=== PATIENT | female | born 1945 ===

== ENCOUNTER 2018-11-22 08:45 | Inpatient (IN) | payer MEDICARE, BC ==
--- NOTE | 2018-11-22 08:52 | ED ---
Adult Trauma - HPI Summary HPI Summary: A 73 y/o female brought in by [facility] presents to [facility] with a chief complaint of pain post falling down steps at home. She reports walking down some of her steps to go to the bathroom when she may have slipped and fell down the rest of the way down. She denies LOC, stating she remembers bumping down about 6-7 carpet steps. he used the stair railing to get up, and then noticed her pain in left hip and knee. Pt states pain in posterior hip increased when sat to use bathroom. Pt was able to get up and get through the kitchen using counter as support - made coffee. The patient called neighbor who came over and call EMS. Pt denies any CP, SOB, abdominal pain, N/V, DINH, vision changes, neck pain or bleeding. No paresthesia. Pt states has arthritis and typically uses APAP or Exederin. None today. Pt uses a cane at most time. No anticoagulants, Per EMS, she was given Fentanyl and Zofran en route, high BP noted by EMS. Her pain has been somewhat alleviated from medication. Pt's medications reviewed this visit. - History of Current Complaint Stated Complaint: FALL INJURY PER EMS Time Seen by Provider: 11/22/18 08:46 Hx Obtained From: Patient, EMS Mechanism of Injury: Fall - down steps Loss of Consciousness: no loss of consciousness Onset/Duration: Started Minutes Ago, Still Present Onset of Pain: Immediate, Post Accident, Prior to Arrival Onset Severity: Moderate Current Severity: Moderate Pain Intensity: 5 Pain Scale Used: 0-10 Numeric Location: Other - left hip, under left arm Aggravating Factor(s): Movement Alleviating Factor(s): Medications Associated Signs & Symptoms: Negative: SOB, Chest Pain, Fever, Loss of Consciousness - Allergy/Home Medications Allergies/Adverse Reactions: Allergies Allergy/AdvReac Type Severity Reaction Status Date / Time Penicillins Allergy Anaphylatic Verified 11/22/18 08:53 Shock strawberry Allergy Hives Verified 11/22/18 08:53 PMH/Surg Hx/FS Hx/Imm Hx Previously Healthy: Yes Endocrine/Hematology History: Denies: Hx Anticoagulant Therapy, Hx Diabetes, Hx Systemic Lupus Erythematosus Cardiovascular History: Reports: Hx Hypercholesterolemia, Hx Hypertension Denies: Hx Congestive Heart Failure GI History: Reports: Hx Gastroesophageal Reflux Disease, Hx Ulcer History: Denies: Hx Dialysis, Hx Renal Disease Musculoskeletal History: Denies: Hx Rheumatoid Arthritis - Cancer History Hx Chemotherapy: No - Surgical History Surgery Procedure, Year, and Place: hysterectomy, appendectomy - Family History Known Family History: Positive: Non-Contributory Negative: Cardiac Disease, Hypertension, Diabetes - Social History Occupation: Retired Lives: Alone Alcohol Use: None Hx Substance Use: No Substance Use Type: Reports: None Hx Tobacco Use: Yes Smoking Status (MU): Current Every Day Smoker Type: Cigarettes Amount Used/How Often: 8-10 per day Review of Systems Negative: Fever Eyes: Negative - vision changes ENT: Negative Cardiovascular: Negative Negative: Chest Pain Respiratory: Negative Negative: Shortness Of Breath Negative: Abdominal Pain, Vomiting, Nausea Positive: Arthralgia - left knee, Myalgia - left hip, armpit, Other - denies neck and bacl pain Neurological: Negative - LOC Negative: Headache, Paresthesia, Numbness, Syncope All Other Systems Reviewed And Are Negative: Yes Physical Exam - Summary Physical Exam Summary: Vital Signs Reviewed: Yes A+Ox3, no distress, texting son, appropriate pain with movement Eyes: Conjunctiva Clear, MEAGHAN. EOM intact and full ENT: Hearing grossly normal TM x 2 clear- no hemotymp, no septal hematoma, mmoist, uvula midline, no exudate, no erythema Neck: Positive: Supple no pain with palpaton Respiratory: Positive: No respiratory distress, No accessory muscle use + CTA throughout no w/r No chest wall pain Cardiovascular: RRR nl s1, s2 no m/r CBT <2 sec 2+ PT b/l abd soft + BS nt/nd no guarding, no distension No ecchymosis Musculoskeletal Exam: No pain c/t/l/s Full AROM cspine + Full AROM upper shoulder b/l without difficulty, mild left shoulder pain with ROnM flex/ext elbows wrist LLE: + flex/ext ankle, + pain lateral aspect left knee with flexion > 60 No tenderness aling femur, Pt with limited SLE second to pain in left hip, posterior Pt with pain with pain lateral rotation Neurological: Positive: Alert, + sensation throughout Psychological: Positive: Normal Response To Family Skin: Positive: no rash, no ecchymosis chest, abdomen, ext no open wound Triage Information Reviewed: Yes Vital Signs Reviewed: Yes Diagnostics - Laboratory Result Diagrams: 11/22/18 09:38 11/22/18 09:38 Lab Statement: Any lab studies that have been ordered have been reviewed, and results considered in the medical decision making process. - Radiology hip/pelvis x-ray Radiology Interpretation Completed By: Radiologist Summary of Radiographic Findings: 1. NONDISPLACED FRACTURE OF THE SUBCAPITAL FEMORAL NECK. 2. OSTEOPENIA. 3. OSTEOARTHRITIS. ED physician has reviewed this imaging report. CXR Radiology Interpretation Completed By: Radiologist Summary of Radiographic Findings: No active cardiopulmonary disease is noted. ED physician has reviewed this imaging report. femur x-ray Radiology Interpretation Completed By: Radiologist Summary of Radiographic Findings: OSTEOARTHRITIS. NO ACUTE OSSEOUS INJURY. IF SYMPTOMS PERSIST, RECOMMEND REPEAT IMAGING. ED physician has reviewed this imaging report. knee x-ray Radiology Interpretation Completed By: Radiologist Summary of Radiographic Findings: OSTEOPENIA. OSTEOARTHRITIS. NO ACUTE OSSEOUS INJURY. IF SYMPTOMS PERSIST, RECOMMEND REPEAT IMAGING. ED physician has reviewed this imaging report. - CT Brain CT Interpretation Completed By: Radiologist Summary of CT Findings: NO ACUTE INTRACRANIAL PATHOLOGY. ED physician has reviewed this imaging report. cerical spine CT Interpretation Completed By: Radiologist Summary of CT Findings: 1. STRAIGHTENING OF THE CERVICAL SPINE, NO EVIDENCE FOR FRACTURE.. 2. MODERATE CERVICAL SPONDYLOSIS DESCRIBED. 3. LARGE NODULE IN THE RIGHT THYROID LOBE. RECOMMEND AN OUTPATIENT THYROID ULTRASOUND FOR. FURTHER EVALUATION. ED physician has reviewed this imaging report. - EKG No standard instances Cardiac Rate: NL EKG Rhythm: Sinus Rhythm ST Segment: Normal Ectopy: : None EKG Comparison: Other - no previous to compare No STEMI Re-Evaluation - Re-Evaluation First Eval Re-Evaluation Time: 10:54 Change: Unchanged Comment: Infomed patient that she has a fracture, pain is tolerated, Ortho will be informed. Second Eval Re-Evaluation Time: 10:59 Change: Unchanged Comment: Informed Pt about plan for admission. Ortho in OR - awaiting call back. spoke with Dr. Baker - will admit once ortho agreement. Will place ward Third Eval Re-Evaluation Time: 11:22 Comment: Spoke with Dr. Mckeon - pt to remain NPO (black coffee this am). May go to OR today if pt is cleared by Medicine. April Dumont NP from hospitalist present and aware of converstation. Will admit medicine. Ortho PA to see pt in ED. Pt to remain NPO Adult Trauma Course/Dx - Course Course Of Treatment: Patient presents to ED by EMS. Patient 73-year-old female who is on medication for blood pressure and cholesterol. Patient states this morning she was going down stairs when she lost her footing and fell approximately 6-7 steps. Patient states she bounced on mostly on her left side. Patient did not hit her head. Did not lose consciousness. No blood HEENT. Patient does have a baseline history of arthritis. Patient states she was able to get herself up using the stairs. Patient states with walking and sitting she has increased pain in her left hip and left knee. Patient did not take anything for pain prior to calling EMS. Patient was given febrile Zofran with EMS with some improvement. Patient is not on anticoagulation. On exam vital signs show slightly elevated blood pressure. Patient with discomfort in his left Left knee with range of motion attempts. We will check labs, EKG, imaging. We'll give patient some morphine. Patient was given Zofran prior to arrival. We'll place ice on her knee and hip. Will also prescribe some Tylenol. Suspect patient may have a pubic rami fracture or possibly a hip fracture as well. We'll continue to monitor. Patient comfortable in agreement with plan. - Diagnoses Provider Diagnoses: Subcapital fracture of left hip, Fall - Physician Notifications Discussed Care Of Patient With: Pamela Baker Time Discussed With Above Provider: 10:57 - call back after d/w Ortho Instructed by Provider To: Admit As Inpatient Discharge - Sign-Out/Discharge Documenting (check all that apply): Patient Departure Patient Received Moderate/Deep Sedation with Procedure: No - Discharge Plan Condition: Stable Disposition: ADMITTED TO [facility] Referrals: Chichi Munoz MD [Medical Doctor] - - Billing Disposition and Condition Condition: STABLE Disposition: Admitted to [facility] - Attestation Statements Document Initiated by Scribe: Yes Documenting Scribe: Victoriano Aguilar Provider For Whom Jing is Documenting (Include Credential): Solange Valladares MD Scribe Attestation: Victoriano Aguillon, scribed for Solange Valladares MD on 11/22/18 at 1122. Scribe Documentation Reviewed: Yes Provider Attestation: The documentation as recorded by the Victoriano conner accurately reflects the service I personally performed and the decisions made by me, Solange Valladares MD Status of Scribe Document: Viewed
[2018-11-22] MEDS ORDERED: Acetaminophen TAB* 325 MG PO ONE (09:23)
[2018-11-22] MEDS ORDERED: Morphine 4 MG/ML VIAL (1 ml) 4 MG/ML VIAL IV ONE (09:23)
[2018-11-22 09:46] LABS: ABS Basophils 0.1 10^3/ul (0-0.2); ABS Eosinophils 0.1 10^3/ul (0-0.6); ABS Lymphocytes 2.1 10^3/ul (1.0-4.8); ABS Monocytes 0.3 10^3/ul (0-0.8); ABS Neutrophils 3.1 10^3/ul (1.5-7.7); ABS Nucleated RBC 0 10^3/ul; Eosinophil % 1.2 %; Hematocrit 42 % (33-41); Hemoglobin 14.1 g/dL (12.0-16.0); Lymphocyte % 37.8 %; Mean Corpuscular HGB Conc 34 g/dL (31-36); Mean Corpuscular Hemoglobin 30 pg (27-31); Mean Corpuscular Volume 89 fL (80-97); Mean Platelet Volume 7.2 fL (7.4-10.4); Nucleated Red Blood Cells % 0; Platelet Count 295 10^3/uL (150-450); Red Blood Count 4.64 10^6 /uL (3.70-4.87); Red Cell Distribution Width 14 % (10.5-15); White Blood Count 5.6 10^3/uL (3.5-10.8)
[2018-11-22 10:06] LABS: Albumin 4.4 g/dL (3.2-5.2); Albumin/Globulin Ratio 1.6 (1-3); BUN/Creatinine Ratio 19.6 (8-20); Calcium 9.9 mg/dL (8.6-10.3); EGFR African American 128.8 (>60); EGFR Non-African American 106.4 (>60); Globulin 2.7 g/dL (2-4); Magnesium 1.7 mg/dL (1.9-2.7); Potassium 3.7 mmol/L (3.5-5.0); Total Bilirubin 0.5 mg/dL (0.2-1.0); Total Protein 7.1 g/dL (6.4-8.9)
[2018-11-22 10:07] LABS: Troponin I 0.01 ng/mL (<0.04)
[2018-11-22 11:32] LABS: Urine Appearance Clear; Urine Bacteria Absent (Absent); Urine Bilirubin Negative (Negative); Urine Blood Negative (Negative); Urine Color Yellow; Urine Glucose Negative (Negative); Urine Ketones Trace (Negative); Urine Nitrite Negative (Negative); Urine Protein Negative (Negative); Urine Red Blood Cell Trace(0-2/hpf) (Absent); Urine Specific Gravity 1.009 (1.010-1.030); Urine Squamous Epithelial Cell Present (Absent); Urine Urobilinogen Negative (Negative); Urine White Blood Cell Trace(0-5/hpf) (Absent)
[2018-11-22] MEDS ORDERED: Magnesium Sulfate 2 GM IV* 2 GM/50 ML BAG IVPB ONE (11:44)
[2018-11-22] MEDS ORDERED: Ondansetron INJ* 2 MG/ML VIAL IV PRN (11:45)
[2018-11-22] MEDS ORDERED: Morphine 4 MG/ML VIAL (1 ml) 4 MG/ML VIAL IV PRN (12:04)
--- NOTE | 2018-11-22 12:07 | CONSULT ---
Consult Consult: Orthopedic consultation Attending Provider: Dr Mckeon Date of Consultation: 11/22/18 Date of Admission: 11/22/18 CC: left hip pain History: Patient is a 73 year old female who present to [facility] on 11/22/18 after sustaining a slip and fall on her stairs at home resulting in left hip fracture. Past medical history includes hypertension and hyperlipidemia as well as a remote history of bleeding gastric ulcer asymptomatic x 40 years. Fall occurred while walking down the stairs this morning, she fell down 6-7 stairs and reports no additional injuries aside from her left hip, and much less bothersome left knee pain. Left hip pain is sharp and severe without radiation. She has no numbness or tingling of the left lower extremity. She did not hit her head or lose consciousness. Denies any chest pain , shortness of breath, dizziness, lightheadedness or recent illness. Pain is currently localized to the left hip and knee. She was able to partial weight bear on the left leg after the fall and call her neighbor and ambulance. She has not eaten today, she had 1/2 cup black coffee at 7:30 am, has had nothing to eat or drink since. No known history of heart attack, stroke, DVT, PE. Has a remote history of blood transfusion 40 years ago after a hysterectomy. No history of adverse effects with anesthesia. Allergies: Penicillin - anaphylaxis. Strawberries Surgical History: Hysterectomy Past medical history: Hypertension, hyperlipidemia, bleeding gastric ulcer Family history: No family history of adverse effects with anesthesia Social: Smokes less than half a pack cigarettes per day. Does not drink alcohol or use ilicit drugs. Community ambulator with a cane. Lives alone and cares for herself without assistance. Home Meds: Simvastatin 40 mg qd, lisinopril 5 mg po QAM Review of Systems: General: Negative for Fever, Chills, recent illness HEENT: Negative for acute change in vision, headache, head trauma. Cardio: No irregular heartbeats, Chest Pain or history of MT Resp: No Shortness of Breath or Cough. No history of asthma, COPD or GURU Abd: no Abdominal Pain, Vomiting, Diarrhea, Nausea : no dysuria MSK: Left hip and knee pain, no other extremity pain Neuro: Sensation intact throughout all extremities without numbness or parasthesias Heme: no history of blood clot Skin: No rash or lesions. Physical Exam: Vitals: Temp Pulse Resp BP Pulse Ox 98.9 F 70 13 151/108 96 11/22/18 08:51 11/22/18 11:00 11/22/18 11:00 11/22/18 10:54 11/22/18 11:00 General: Well appearing, NAD, alert and oriented to person, place and time HEENT: NCAT. EOMi, moist mucus membranes Cardio: S1S2 RRR Resp: CTA BL. no wheezes, rales or rhonchi ABD: bowel sounds normoactive. Nontender to palpation, no guarding or rigidity. MSK Upper Extremities: Skin envelope intact, no obvious deformity, nontender to palpation. Active flexion and extension of digits, wrists, elbows without associated pain. Shoulders with nonpainful active forward flexion and abduction. MSK Right Lower Extremity: Skin envelope intact, no obvious russell deformity, nontender to palpation. Active nonpainful flexion and extension of digits, ankle , knee and hip. Negative log roll at the hip. No pain with heel strike. MSK Left Lower Extremity: Skin envelope intact, no obvious russell deformity, nontender to palpation of lower leg distally. She is very tender over the lateral hip as well as moderately over the anterior knee. Active nonpainful flexion and extension of digits, ankle. + pain of the hip with any ROM knee and hip. Spine: No midline tenderness of cervical, thoracic, lumber spine Neuro: Sensation intact to light touch throughout bilateral upper and lower extremities Vascular: DP pulse 2+ bilaterally. Capillary refill less than two seconds distally bilateral upper and lower extremities Psych: Appropriate affect. Skin: No rash or lesions. No open fractures. Diagnostic Studies: HIP LEFT 2 VIEWS AND PELVIS IMPRESSION: 1. NONDISPLACED FRACTURE OF THE SUBCAPITAL FEMORAL NECK. 2. OSTEOPENIA. 3. OSTEOARTHRITIS KNEE LEFT 4+ VWS IMPRESSION: 1. OSTEOPENIA. 2. OSTEOARTHRITIS. 3. NO ACUTE OSSEOUS INJURY. IF SYMPTOMS PERSIST, RECOMMEND REPEAT IMAGING. Assessment: Left hip femoral neck fracture Plan: Bedrest, NWB LLE. Patient agrees to surgical fixation of her left femoral neck fracture with cannulated screws today with Dr Mckeon . Patient should remain NPO. Needs a CBC, BMP, type and screen, INR prior to surgery. She has been medically optimized and will be admitted to our medicine service.
[2018-11-22] MEDS ORDERED: Buffered Lidocaine 1% SYRIN* 1 ML/SYRINGE INTRADERM ONE (12:48)
[2018-11-22] MEDS ORDERED: Lactated Ringers 1000 ML Bag* 1,000 ML IV SCH (13:00)
[2018-11-22 13:04] LABS: INR 0.92 (0.77-1.02)
[2018-11-22] MEDS: NS 0.9% 1000 ML** 1,000 ML IV SCH ×2 (13:45→19:50)
--- NOTE | 2018-11-22 14:34 | HP ---
CC: Dr. Lucero* HISTORY AND PHYSICAL: DATE OF ADMISSION: 11/22/18 PRIMARY CARE PROVIDER: Dr. Lucero with [place] [facility] [place]. OTHER PROVIDERS: Dr. Mckeon in consultation. ATTENDING PHYSICIAN: Dr. Humphrey* (dictated by Tony Moreau, LORENZO). CHIEF COMPLAINT: Left hip pain. HISTORY OF PRESENT ILLNESS: Duong is a 73-year-old female with a past medical history significant for hypertension and hyperlipidemia; who presented to the emergency department today with complaints of left hip pain. The patient reports that she woke this morning and walked down stairs to use the restroom and had a mechanical fall down the last 6 to 7 stairs. After which, she was able to stand backup and worked her way to the kitchen and bathroom. When she sat down in the toilet, she had severe pain in the left hip and called her friends who came to see her. Her friends called 911 and she presents to the emergency room. While in the emergency room, the patient was evaluated by Dr. Solange Valladares and she was found to have a nondisplaced fracture of the subcapital femoral neck. Therefore, Dr. Mckeon from Orthopedics was consulted. The plan is to take the patient to the OR today. Also in the emergency department, the patient had a CBC which was unremarkable, CMP which was unremarkable with the exception of magnesium of 1.7 and a urine which was unremarkable. The patient's vital signs have been stable. While in the emergency room, the patient has received IV fluids and pain medication. The patient will be admitted to a short-stay surgical. PAST MEDICAL HISTORY: 1. Hypertension. 2. Hyperlipidemia. PAST SURGICAL HISTORY: 1. Hysterectomy. 2. Kidney stent placement with lithotripsy. 3. Appendectomy. HOME MEDICATIONS: 1. [place]-3 fatty acid 1200 mg 1 cap p.o. b.i.d. 2. Lisinopril 5 mg p.o. daily. 3. Vitamin C 500 mg p.o. daily. 4. Simvastatin 40 mg p.o. q.p.m. 5. Multivitamin 1 tab p.o. daily. ALLERGIES: PENICILLIN and STRAWBERRY. FAMILY HISTORY: The patient reports her mother and father were healthy. Mother at age 99 and father at age 89 due to unknown causes. The patient reports her brother has prostate cancer. The patient denies any history of cardiovascular disease in her family. The patient denies any history of diabetes in her family. The patient does have a history of cancer in her family as her father had prostate cancer. SOCIAL HISTORY: The patient is currently everyday smoker. She reports she smokes about 8 to 10 cigarettes a day for about 50 years. She has never been a pack a day smoker. The patient denies alcohol use. The patient reports previous marijuana use which she stopped when she was diagnosed with hypertension. 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 The patient is . The patient has 3 stepchildren. The patient lives alone at 2- story house. The patient uses a walking stick for ambulation at baseline. REVIEW OF SYSTEMS: Constitutional: The patient denies fevers, anorexia, weight loss, recent illness, travel. Cardiac: The patient denies chest pain, edema, palpitations. Respiratory: The patient denies cough, denies hemoptysis , denies shortness of breath. GI: No nausea or vomiting, no diarrhea, no abdominal pain. Last BM was yesterday. : No gross hematuria or dysuria. Neuro: No focal weakness or sensory loss. Eyes: No visual complaints. ENT: No dysphagia. Musculoskeletal: The patient reports left knee and left hip pain. Skin: No rashes or lesions. Psych: No psychosis or anxiety. PHYSICAL EXAMINATION GENERAL: Mrs. Spann is a 73-year-old female who is sitting on the ED stretcher , appears in no acute distress. She appears stated age. VITAL SIGNS: Temp 98.9, HR 75, RR 22, O2 saturation 97% on room air, BP 158/83. HEENT: PERRLA. EOMs intact. Oral mucosa is moist without lesions. Posterior pharynx is clear. NECK: Full range of motion. No lymphadenopathy. Supple. RESPIRATORY: Symmetrical chest expansion. No accessory muscle use. Lungs are clear to auscultation. No rhonchi, wheezes, or rales. CARDIOVASCULAR: Regular rate and rhythm. S1 and S2 present. No murmurs, rubs , or gallops. ABDOMEN: Soft and nontender to palpation. Bowel sounds normoactive. EXTREMITIES: Skin is warm and smooth bilaterally. No edema. No clubbing or cyanosis. Pedal pulses are 2+ bilaterally. MUSCULOSKELETAL: No pain to palpation. NEURO: Awake, alert, and oriented x4. Motor strength is 5/5 in the upper and lower extremities. SKIN: The skin is grossly intact without lesions. DIAGNOSTIC STUDIES/LABORATORY DATA: WBC 5.6, hemoglobin 14.1, hematocrit 42, platelets 295. Sodium 137, potassium 3.7, chloride 104, BUN 11, creatinine 0.56 , glucose 119, magnesium 1.7. Urine positive for ketones, leukocyte esterase, squamous epithelials. Brain CT: Impression: No intracranial pathology. Cervical spine CT: Impression: Straightening of the cervical spine, no evidence of fracture. Moderate cervical spine spondylosis as described. Large nodule on the right thyroid lobe, recommend outpatient thyroid ultrasound for further evaluation. Chest x-ray: Impression: No active cardiopulmonary disease. EKG: Impression: Sinus rhythm. No previous to compare. No ST changes. Femur x-ray: Impression: Osteoarthritis. No acute osseous injury. If symptoms persist, recommend repeat imaging. Hip/pelvis x-ray: Impression: Nondisplaced fracture of the subcapital femoral neck. Osteopenia. Osteoarthritis. Knee x-ray: Impression: Osteopenia. Osteoarthritis. No acute osseous injury. ASSESSMENT AND PLAN: Mrs. Spann is a 73-year-old female with a past medical history significant for hypertension and hyperlipidemia, who presented to the ED today with complaints of left hip pain and was found to have a nondisplaced fracture of the subcapital femoral neck on the left side. The patient will be admitted to short-stay. 1. Nondisplaced fracture of the left subcapital femoral neck: As mentioned above, Orthopedics has been consulted and GUERA Singh has evaluated the patient. The plan is for the patient to go to the OR today. The patient reports she can climb a flight of stairs, participate in housework, and mow her lawn without getting shortness of breath or chest pain. The patient reports she has never had a reaction to anesthesia. The patient is maximized for surgery at this point. The patient only had black coffee this morning and sips of water with pills. 2. Pain management: The patient will be provided with IV pain management until she goes to the OR. After OR, she can be transitioned to p.o. pain management. 3. Physical therapy/occupational therapy: I have placed an order for physical therapy and occupational therapy to occur after a surgery. The patient lives in a 2-story house and will benefit from physical therapy. 4. Hypertension. The patient did take lisinopril 5 mg this morning. I will hold lisinopril in a postop period and resume as the patient tolerates. 5. Hyperlipidemia: I will continue the patient's statin therapy. 6. FEN: The patient is n.p.o. in preparation for surgery. After surgery, the patient can be advanced to a regular diet. 7. Code status: The patient wishes to be DNR/DNI. 8. Surrogate decision maker: The patient's surrogate decision maker will be her son, Jarrett Spann, who can be reached at [phone]. 9. DVT prophylaxis: Based on the DVT risk assessment, the patient is high risk. I will hold off on ordering subcu heparin at this time as the patient has plans for the OR this afternoon. DVT prophylaxis can resume after surgery per Ortho discretion. TIME SPENT: Approximately 65 minutes was spent on this admission, greater than half the time was spent with the patient, obtaining my history, performing my physical exam, and reviewing my plan of care. This case has been reviewed with my attending, Dr. Humphrey, who is in agreement with my plan of care. TONY MOREAU, LORENZO [id number]/CPS #: [id number] HEATHER
[2018-11-22] MEDS ORDERED: Ropivacaine* 2 MG/ML 20 ML VIAL (0.2%) ONE (14:54)
--- NOTE | 2018-11-22 15:06 | PN ---
Progress Note - Progress Note Date of Service: 11/22/18 Note: Pt seen and examined. Sustained a ground level fall this AM. Continued to weight bear but noted increase in pain. She came to the ER and was diagnosed with a nondisplaced femoral neck fracture. She is uses a cane to ambulate and [place] Her several years ago and she has step children but no family nearby. Denies SOB, CP, numbness and tingling. Temp Pulse Resp BP Pulse Ox 97.5 F 68 16 143/81 96 11/22/18 14:33 11/22/18 14:33 11/22/18 14:33 11/22/18 14:33 11/22/18 14:33 NAD. AAOX3. pleasant. lying in bed. EOM, CTA, RRR, abd soft and nontender. LLE: skin intact, SILT grossly distally, able to flex/ext toes and dorsiflex and plantarflex ankle. brisk cap refill. calf soft and nontender. Laboratory Results - last 24 hr 11/22/18 11/22/18 11/22/18 09:38 09:38 09:38 WBC 5.6 RBC 4.64 Hgb 14.1 Hct 42 H MCV 89 MCH 30 MCHC 34 RDW 14 Plt Count 295 MPV 7.2 L Neut % (Auto) 54.6 Lymph % (Auto) 37.8 Murray % (Auto) 5.2 Eos % (Auto) 1.2 Baso % (Auto) 1.2 Absolute Neuts (auto) 3.1 Absolute Lymphs (auto) 2.1 Absolute Monos (auto) 0.3 Absolute Eos (auto) 0.1 Absolute Basos (auto) 0.1 Absolute Nucleated RBC 0 Nucleated RBC % 0 INR (Anticoag Therapy) Sodium 137 Potassium 3.7 Chloride 104 Carbon Dioxide 27 Anion Gap 6 BUN 11 Creatinine 0.56 Est GFR ( Amer) 128.8 Est GFR (Non-Af Amer) 106.4 BUN/Creatinine Ratio 19.6 Glucose 119 H Calcium 9.9 Magnesium 1.7 L Total Bilirubin 0.50 AST 13 ALT 11 Alkaline Phosphatase 112 H Troponin I 0.01 Total Protein 7.1 Albumin 4.4 Globulin 2.7 Albumin/Globulin Ratio 1.6 Urine Color Urine Appearance Urine pH Ur Specific [place] Urine Protein Urine Ketones Urine Blood Urine Nitrate Urine Bilirubin Urine Urobilinogen Ur Leukocyte Esterase Urine WBC (Auto) Urine RBC (Auto) Ur Squamous Epith Cells Urine Bacteria Urine Glucose Blood Type A Positive Antibody Screen Negative 11/22/18 11/22/18 09:38 11:18 WBC RBC Hgb Hct MCV MCH MCHC RDW Plt Count MPV Neut % (Auto) Lymph % (Auto) Murray % (Auto) Eos % (Auto) Baso % (Auto) Absolute Neuts (auto) Absolute Lymphs (auto) Absolute Monos (auto) Absolute Eos (auto) Absolute Basos (auto) Absolute Nucleated RBC Nucleated RBC % INR (Anticoag Therapy) 0.92 Sodium Potassium Chloride Carbon Dioxide Anion Gap BUN Creatinine Est GFR ( Amer) Est GFR (Non-Af Amer) BUN/Creatinine Ratio Glucose Calcium Magnesium Total Bilirubin AST ALT Alkaline Phosphatase Troponin I Total Protein Albumin Globulin Albumin/Globulin Ratio Urine Color Yellow Urine Appearance Clear Urine pH 6.0 Ur Specific [place] 1.009 L Urine Protein Negative Urine Ketones Trace A Urine Blood Negative Urine Nitrate Negative Urine Bilirubin Negative Urine Urobilinogen Negative Ur Leukocyte Esterase Trace A Urine WBC (Auto) Trace(0-5/hpf) Urine RBC (Auto) Trace(0-2/hpf) Ur Squamous Epith Cells Present A Urine Bacteria Absent Urine Glucose Negative Blood Type Antibody Screen Xrays demonstrate a nondisplaced left femoral neck fracture. A/P 73 yo F with hyperlipidemia and hypertension with nondisplaced femoral neck fracture bedrest. npo for OR today plan for L hip cannulated screws ancef bonus clerk to OR.
[2018-11-22] MEDS ORDERED: Midazolam* 1 MG/ML 5 ML VIAL (5 MG) ONE (15:12)
[2018-11-22] MEDS ORDERED: DiMENhydriNATE IV* 50 MG/ML VIAL IV PUSH PRN (15:14)
[2018-11-22] MEDS ORDERED: ceFAZolin 2 GM in NS PREMIX(*) 2 GM/100 ML BAG IVPB ONE (15:14)
[2018-11-22] MEDS ORDERED: Naloxone* 0.4 MG/ML 1 ML VIAL IV PRN (15:14)
[2018-11-22] MEDS ORDERED: Acetaminophen IV 1GM/100ML * 1,000 MG/100 ML VIAL IVPB ONE (15:14)
[2018-11-22] MEDS ORDERED: oxyCODONE TAB* 5 MG TAB PO PRN (15:14)
[2018-11-22] MEDS ORDERED: fentaNYL* 50 MCG/ML 2 ML VIAL (100 MCG VIAL) ONE (15:25)
[2018-11-22] MEDS ORDERED: Ketorolac INJ* 30 MG/ML 1 ML VIAL ONE (16:11)
[2018-11-22] MEDS ORDERED: Ondansetron INJ* 2 MG/ML VIAL ONE (16:11)
[2018-11-22] MEDS ORDERED: Dexamethasone IV* 4 MG/ML 1 ML (4 MG) ONE (16:11)
[2018-11-22] MEDS ORDERED: DiMENhydriNATE IV* 50 MG/ML VIAL ONE (16:11)
[2018-11-22] MEDS ORDERED: Succinylcholine* 20 MG/ML 10 ML VIAL ONE (16:11)
[2018-11-22] MEDS ORDERED: Propofol* 10 MG/ML 20 ML BTL ONE ×2 (16:11→16:19)
[2018-11-22] MEDS ORDERED: Lidocaine 2% PF * 5 ML VIAL ONE (16:12)
[2018-11-22] MEDS ORDERED: oxyCODONE/Acetamin 5/325 MG* TAB PO PRN (17:00)
[2018-11-22] MEDS ORDERED: Docusate CAP* 100 MG PO PRN (17:00)
[2018-11-22] MEDS ORDERED: Morphine INJ* 2 MG/ML 1 ML SYRINGE (TWO MG - NEW SYRINGE VERSION) IV PRN (17:00)
[2018-11-22] MEDS ORDERED: HYDROmorphone INJ1* 1 MG/ML SYRINGE ONE ×2 (17:38→18:02)
[2018-11-22] MEDS ORDERED: Acetaminophen IV 1GM/100ML * 100 ML ONE (17:41)
[2018-11-22] MEDS: Atorvastatin* 20 MG TAB PO SCH (17:51)
[2018-11-22] MEDS ORDERED: Gabapentin CAP(*) 300 MG ONE (17:58)
[2018-11-22] MEDS ORDERED: oxyCODONE TAB* 5 MG TAB ONE (18:02)
[2018-11-22] MEDS: HYDROmorphone INJ1* 1 MG/ML SYRINGE IV PRN ×5 (18:05→18:48)
[2018-11-22] MEDS ORDERED: Gabapentin CAP(*) 300 MG PO ONE (18:30)
[2018-11-23] MEDS: Clindamycin 600 MG/D5W BAG(*) 600 MG/50 ML BAG IV SCH ×2 (00:17→08:36)
[2018-11-23] MEDS: oxyCODONE/Acetamin 5/325 MG* TAB PO PRN ×4 (04:27→18:59)
[2018-11-23 05:17] LABS: ABS Basophils 0 10^3/ul (0-0.2); ABS Eosinophils 0 10^3/ul (0-0.6); ABS Lymphocytes 1.8 10^3/ul (1.0-4.8); ABS Monocytes 0.7 10^3/ul (0-0.8); ABS Neutrophils 8.7 10^3/ul (1.5-7.7); ABS Nucleated RBC 0 10^3/ul; Eosinophil % 0 %; Hematocrit 35 % (33-41); Hemoglobin 11.8 g/dL (12.0-16.0); Mean Corpuscular HGB Conc 34 g/dL (31-36); Mean Corpuscular Hemoglobin 31 pg (27-31); Mean Corpuscular Volume 90 fL (80-97); Mean Platelet Volume 7.6 fL (7.4-10.4); Nucleated Red Blood Cells % 0; Platelet Count 250 10^3/uL (150-450); Red Blood Count 3.86 10^6 /uL (3.70-4.87); Red Cell Distribution Width 14 % (10.5-15); White Blood Count 11.3 10^3/uL (3.5-10.8)
[2018-11-23 05:35] LABS: BUN/Creatinine Ratio 26.2 (8-20); Calcium 8.8 mg/dL (8.6-10.3); EGFR African American 116.7 (>60); EGFR Non-African American 96.4 (>60); Potassium 4.1 mmol/L (3.5-5.0)
[2018-11-23] MEDS: Lisinopril TAB* 10 MG PO SCH (08:35)
--- NOTE | 2018-11-23 08:47 | PN ---
Progress Note - Progress Note Date of Service: 11/23/18 Note: pt seen and examined at 6:15 AM. Doing ok. Minimal pain but complains of severe stiffness. Denies numbness and tingling. No SOB Temp Pulse Resp BP Pulse Ox 98.9 F 74 16 124/60 97 11/23/18 07:47 11/23/18 07:47 11/23/18 08:35 11/23/18 07:47 11/23/18 07:[address] LLE: calf soft nontender, silt grossly distally. brisk cap refill, able to flex/ext toe, dorsiflex/plantarflex ankle Laboratory Results - last 24 hr 11/22/18 11/22/18 11/22/18 09:38 09:38 09:38 WBC 5.6 RBC 4.64 Hgb 14.1 Hct 42 H MCV 89 MCH 30 MCHC 34 RDW 14 Plt Count 295 MPV 7.2 L Neut % (Auto) 54.6 Lymph % (Auto) 37.8 Pepin % (Auto) 5.2 Eos % (Auto) 1.2 Baso % (Auto) 1.2 Absolute Neuts (auto) 3.1 Absolute Lymphs (auto) 2.1 Absolute Monos (auto) 0.3 Absolute Eos (auto) 0.1 Absolute Basos (auto) 0.1 Absolute Nucleated RBC 0 Nucleated RBC % 0 INR (Anticoag Therapy) Sodium 137 Potassium 3.7 Chloride 104 Carbon Dioxide 27 Anion Gap 6 BUN 11 Creatinine 0.56 Est GFR ( Amer) 128.8 Est GFR (Non-Af Amer) 106.4 BUN/Creatinine Ratio 19.6 Glucose 119 H Calcium 9.9 Magnesium 1.7 L Total Bilirubin 0.50 AST 13 ALT 11 Alkaline Phosphatase 112 H Troponin I 0.01 Total Protein 7.1 Albumin 4.4 Globulin 2.7 Albumin/Globulin Ratio 1.6 Urine Color Urine Appearance Urine pH Ur Specific [place] Urine Protein Urine Ketones Urine Blood Urine Nitrate Urine Bilirubin Urine Urobilinogen Ur Leukocyte Esterase Urine WBC (Auto) Urine RBC (Auto) Ur Squamous Epith Cells Urine Bacteria Urine Glucose Blood Type A Positive Antibody Screen Negative 11/22/18 11/22/18 11/23/18 09:38 11:18 04:52 WBC 11.3 H RBC 3.86 Hgb 11.8 L Hct 35 MCV 90 MCH 31 MCHC 34 RDW 14 Plt Count 250 MPV 7.6 Neut % (Auto) 77.2 Lymph % (Auto) 16.0 Pepin % (Auto) 6.5 Eos % (Auto) 0 Baso % (Auto) 0.3 Absolute Neuts (auto) 8.7 H Absolute Lymphs (auto) 1.8 Absolute Monos (auto) 0.7 Absolute Eos (auto) 0 Absolute Basos (auto) 0 Absolute Nucleated RBC 0 Nucleated RBC % 0 INR (Anticoag Therapy) 0.92 Sodium Potassium Chloride Carbon Dioxide Anion Gap BUN Creatinine Est GFR ( Amer) Est GFR (Non-Af Amer) BUN/Creatinine Ratio Glucose Calcium Magnesium Total Bilirubin AST ALT Alkaline Phosphatase Troponin I Total Protein Albumin Globulin Albumin/Globulin Ratio Urine Color Yellow Urine Appearance Clear Urine pH 6.0 Ur Specific [place] 1.009 L Urine Protein Negative Urine Ketones Trace A Urine Blood Negative Urine Nitrate Negative Urine Bilirubin Negative Urine Urobilinogen Negative Ur Leukocyte Esterase Trace A Urine WBC (Auto) Trace(0-5/hpf) Urine RBC (Auto) Trace(0-2/hpf) Ur Squamous Epith Cells Present A Urine Bacteria Absent Urine Glucose Negative Blood Type Antibody Screen 11/23/18 04:52 WBC RBC Hgb Hct MCV MCH MCHC RDW Plt Count MPV Neut % (Auto) Lymph % (Auto) Pepin % (Auto) Eos % (Auto) Baso % (Auto) Absolute Neuts (auto) Absolute Lymphs (auto) Absolute Monos (auto) Absolute Eos (auto) Absolute Basos (auto) Absolute Nucleated RBC Nucleated RBC % INR (Anticoag Therapy) Sodium 137 Potassium 4.1 Chloride 106 Carbon Dioxide 26 Anion Gap 5 BUN 16 Creatinine 0.61 Est GFR ( Amer) 116.7 Est GFR (Non-Af Amer) 96.4 BUN/Creatinine Ratio 26.2 H Glucose 123 H Calcium 8.8 Magnesium Total Bilirubin AST ALT Alkaline Phosphatase Troponin I Total Protein Albumin Globulin Albumin/Globulin Ratio Urine Color Urine Appearance Urine pH Ur Specific [place] Urine Protein Urine Ketones Urine Blood Urine Nitrate Urine Bilirubin Urine Urobilinogen Ur Leukocyte Esterase Urine WBC (Auto) Urine RBC (Auto) Ur Squamous Epith Cells Urine Bacteria Urine Glucose Blood Type Antibody Screen A/P POD#1 from L hip cannulated screws in setting of nondisplaced femoral neck fracture with severe OA PT/OT- WBAT mobilize analgesia lovenox for 6 weeks post op post op abx dressing change tomorrow dispo to home v snf
--- NOTE | 2018-11-23 11:30 | OP ---
CC: PCP OPERATIVE REPORT: DATE OF OPERATION: 11/22/18 DATE OF : 47 SURGEON: Chris Mckeon MD. PRESS ROOM SUPERVISOR: GUERA Us. ANESTHESIOLOGIST: Dr. Hartman. ANESTHESIA: General. PRE-OP DIAGNOSIS: Left nondisplaced femoral neck fracture. POST-OP DIAGNOSIS: Left nondisplaced femoral neck fracture. OPERATIVE PROCEDURE: Left hip cannulated screws. COMPLICATIONS: None. ESTIMATED BLOOD LOSS: 150. IMPLANTS: Three 7.3 mm cannulated screws. INDICATIONS: Duong Spann is a 73-year-old female who [place], who presents after a fall down the stairs. She was actually able to weight bear on the hip after and made herself a cup of coffee and went to the bathroom, but she had persistent pain. She went to the hospital and was diagnosed with nondisplaced fracture. She had significant osteoarthritis in both hips and is aware that she is a candidate for hip replacement, but declines to pursue with one. She has significant hip contractures with her hips and is unable to lie flat. She denies numbness or tingling. No other injuries. She is relatively healthy with minimal medical issues. She underwent medical risk optimization and was n.p.o. and was able to go to surgery the same day being seen. Risks and benefits were discussed at length, included but not limited to bleeding; infection; damage to nerves, vessels, surrounding structures; wound nonhealing; persistent pain; need for further surgery; scarring; stiffness; incomplete relief of symptoms; risks of anesthesia; failure of the hardware; nonunion; malunion; risk of DVT. She has elected to proceed. DESCRIPTION OF PROCEDURE: The patient was greeted in the preoperative area by the attending surgeon. Correct extremity was marked and consent was confirmed. The patient was then brought back to the operating suite. She was placed in the supine position on the operating table. She underwent general anesthesia. She was appropriately positioned on the fracture table after which all bony prominences were padded. She was placed in the traction table with a well- padded perineal post. The left buttock was placed in the traction leg lara with no traction as she did not have a displaced fracture, but she did have significant hip contracture and care was made to keep it so that it was appropriately flexed. The right hip was placed in well-leg lara, which was well padded. Once she was positioned, the x-ray was brought in to confirm visualization that there was no change in the alignment of the fracture. Once this was done, the left hip was then prepped and draped in usual sterile fashion with chlorhexidine soap, scrub, alcohol wipe and a final prep with ChloraPrep. After appropriate surgical pause indicating side, site, procedure, and administration of antibiotics, a 10 blade was used to make in line laterally about the hip bone along the IT band. The IT band was identified and incised in line. The soft tissues were carefully exposed and the Graves was used to expose the bone. Once this was identified through fluoroscopic guidance, the more superior guidewire was then provisionally placed. This was checked in AP and lateral views. Once it was appropriately positioned, two further pins were placed superiorly and anteriorly and superiorly and posteriorly. Once this was confirmed on the AP and lateral views, the appropriate length was identified, the lateral cortex was drilled and 3 appropriate length screws were placed, these were short-threaded cannulated screws. Once they were placed, final images were obtained. The wounds were copiously irrigated with sterile saline. The wound was closed in layers with IT band, first with 0-Vicryl as well as deep sutures to close down the space and then the skin was closed in layers with 3-0 Monocryl and cecilia. Sterile dressings were applied. She was awoken from anesthesia and transferred to PACU in stable condition. POSTOPERATIVE PLAN: She will be weightbearing as tolerated. She will undergo 24 hours postoperative antibiotics to start therapy today and tomorrow. DVT prophylaxis will be Lovenox for 6 weeks. She will be [facility]. I will see the patient back in the hospital, dressing change will be on postop day #2. [id number]/[facility] #: [id number] HEATHER
[2018-11-23] MEDS: Enoxaparin(*) 40 MG/0.4 ML SYR SUBCUT SCH (12:17)
[2018-11-23] MEDS ORDERED: Nicotine Inhaler* 10 MG AMP ONE (14:56)
[2018-11-23] MEDS ORDERED: Mouth Piece, Nicotine* 1 EACH CARTRIDGE ONE (14:57)
[2018-11-23] MEDS ORDERED: Clindamycin 600 MG IVPREMIX(* 600 MG/50 ML SDV IV SCH (16:00)
[2018-11-23] MEDS ORDERED: Nicotine Inhaler* 10 MG AMP INH PRN (17:45)
[2018-11-23] MEDS ORDERED: Mouth Piece, Nicotine* 1 EACH CARTRIDGE INH PRN (17:47)
--- NOTE | 2018-11-23 17:52 | PN ---
Subjective Date of Service: 11/23/18 Interval History: Patient reports frustration with not being permitted to walk as freely as she would like. She reports she has been refusing morphine at times when offered, and is now starting to feel more pain in her hip. Additionally reporting neck pain. She denies headache, chest pain, tachycardia, dyspnea, abd pain, n/v/d. Objective Active Medications: Atorvastatin Calcium (Lipitor*) 20 mg PO QPM [facility] Last Admin: 11/22/18 17:51 Dose: Not Given Docusate Sodium (Colace Cap*) 100 mg PO BID PRN PRN Reason: CONSTIPATION Enoxaparin Sodium (Lovenox(*)) 40 mg SUBCUT DAILY [facility] Stop: 01/03/19 09:01 Last Admin: 11/23/18 12:17 Dose: 40 mg Sodium Chloride (Ns 0.9% 1000 Ml) 1,000 mls @ 100 mls/hr IV PER RATE [facility] Last Admin: 11/22/18 19:50 Dose: 100 mls/hr Lisinopril (Prinivil Tab*) 10 mg PO DAILY [facility] Last Admin: 11/23/18 08:35 Dose: Not Given Morphine Sulfate (Morphine Inj (Syringe))*) 2 mg IV Q4H PRN PRN Reason: PAIN - BREAKTHROUGH Nicotine (Nicotine Inhaler*) 10 mg INH Q2H PRN PRN Reason: CRAVING Ondansetron HCl (Zofran Inj*) 4 mg IV Q4H PRN PRN Reason: NAUSEA/VOMITING Oxycodone/Acetaminophen (Percocet 5/325 Tab*) 1 tab PO Q4H PRN PRN Reason: PAIN - MODERATE Oxycodone/Acetaminophen (Percocet 5/325 Tab*) 2 tab PO Q4H PRN PRN Reason: PAIN - SEVERE Last Admin: 11/23/18 14:58 Dose: 2 tab Vital Signs - 8 hr 11/23/18 11/23/18 11/23/18 10:35 11:40 14:58 Temperature 98.9 F Pulse Rate 65 Respiratory 16 16 16 Rate Blood Pressure 110/60 (mmHg) O2 Sat by Pulse 96 Oximetry 11/23/18 11/23/18 15:33 16:58 Temperature 98.7 F Pulse Rate 75 Respiratory 16 16 Rate Blood Pressure 99/55 (mmHg) O2 Sat by Pulse 96 Oximetry Oxygen Devices in Use Now: Nasal Cannula Appearance: White female, appears stated age, laying upright in hospital bed, appearing in NAD Eyes: No Scleral Icterus, PERRLA Ears/Nose/Mouth/Throat: Mucous Membranes Moist Neck: NL Appearance and Movements; NL JVP, Trachea Midline Respiratory: Symmetrical Chest Expansion and Respiratory Effort, Clear to Auscultation Cardiovascular: NL Sounds; No Murmurs; No JVD, RRR Abdominal: - - Abdomen soft, nontender, nondistended Extremities: No Edema, No Clubbing, Cyanosis, - - Neg calf tenderness Skin: No Rash or Ulcers, - - Skin warm, dry, intact Neurological: Alert and Oriented x 3, NL Sensation Result Diagrams: 11/23/18 04:52 11/23/18 04:52 Microbiology and Other Data: Microbiology 11/22/18 11:18 Urine Culture - Final Urine No Growth (<1,000 CFU/mL) Assess/Plan/Problems-Billing Assessment: 73 yo female with PMHx HTN, HLD, and tobacco use presented to the ED after falling down nearly a full flight of stairs, found to have left hip fracture. Patient is s/p left hip fracture repair with Dr. Mckeon. - Patient Problems (1) Closed left hip fracture Code(s): S72.002A - FRACTURE OF UNSP PART OF NECK OF LEFT FEMUR, INIT SNOMED Code(s): 344457243 Comment: -s/p left hip fracture repair with Dr. Mckeon on 11/22/18 -left hip pain at time of evaluation, but patient is not maximizing pain control medications; to continue prn percocet and prn morphine -awaiting possible placement for rehab (2) Fall Comment: -left hip fracture as described above -otherwise without fracture of left knee, left femur, ribs, or cervical spine (3) Neck pain Code(s): M54.2 - CERVICALGIA SNOMED Code(s): 92806245 Comment: -patient complains of neck pain at time of evaluation -no evidence of fracture at admission; ROM intact at time of evaluation -patient not maximizing her pain control, will continue to monitor (4) Hypertension Code(s): I10 - ESSENTIAL (PRIMARY) HYPERTENSION SNOMED Code(s): 84816671 Comment: -home lisinopril restarted with holding parameters if SBP <130 -continue to monitor (5) Thyroid nodule Code(s): E04.1 - NONTOXIC SINGLE THYROID NODULE SNOMED Code(s): 711284849 Comment: -incidental thyroid nodule found on imaging - outpatient ultrasound to be recommended at discharge (6) Tobacco use Code(s): Z72.0 - TOBACCO USE SNOMED Code(s): 893883297 Comment: -started nicotine inhaler, discussed smoking cessation (7) Hyperlipidemia Code(s): E78.5 - HYPERLIPIDEMIA, UNSPECIFIED SNOMED Code(s): 47999508 Comment: -continue home lipitor (8) DVT prophylaxis Code(s): SUL2652 - SNOMED Code(s): 907825348 Comment: -continue lovenox unless otherwise determined by orthopedic surgery (9) DNR (do not resuscitate)
[2018-11-23] MEDS: Atorvastatin* 20 MG TAB PO SCH (18:37)
[2018-11-23 19:52] LABS: Mean Platelet Volume 7.4 fL (7.4-10.4); Platelet Count 226 10^3/uL (150-450)
[2018-11-24 06:42] LABS: Hematocrit 32 % (33-41)
[2018-11-24 06:58] LABS: Calcium 9.1 mg/dL (8.6-10.3); EGFR African American 140.3 (>60); EGFR Non-African American 115.9 (>60); Potassium 3.8 mmol/L (3.5-5.0)
[2018-11-24 07:53] VITALS: BP 133/67
[2018-11-24] MEDS ORDERED: Bisacodyl SUPP* 10 MG SUPP PR PRN (08:03)
[2018-11-24] MEDS: Enoxaparin(*) 40 MG/0.4 ML SYR SUBCUT SCH (08:26)
[2018-11-24] MEDS: Lisinopril TAB* 10 MG PO SCH (08:26)
--- NOTE | 2018-11-24 10:19 | PN ---
Progress Note - Progress Note Date of Service: 11/24/18 SOAP: Subjective: []Patient seen OOB in chair, she is doing well. Looking forward to discharge to [facility] today. Denies SOB, CP, palpitations or dizziness. Objective: [] Vital Signs Temp 97.8 F 11/24/18 07:36 Pulse 67 11/24/18 07:36 Resp 16 11/24/18 08:38 BP 133/67 11/24/18 07:36 Pulse Ox 96 11/24/18 07:36 Intake & Output 11/23/18 11/24/18 11/24/18 18:59 06:59 18:59 Intake Total 920 1080 120 Output Total 1300 2050 500 Balance -380 -970 -380 Intake: Oral 920 1080 120 Output: Urine 1300 2050 500 Laboratory Results - last 24 hr 11/23/18 11/24/18 11/24/18 19:41 06:27 06:27 Hgb 11.0 L Hct 32 L Plt Count 226 MPV 7.4 Sodium 139 Potassium 3.8 Chloride 107 Carbon Dioxide 26 Anion Gap 6 BUN 13 Creatinine 0.52 Est GFR ( Amer) 140.3 Est GFR (Non-Af Amer) 115.9 BUN/Creatinine Ratio 25.0 H Glucose 124 H Calcium 9.1 Left hip dressing changed, minimal drainage on dressings, wound benign calf NT and soft +Df left ankle sensation and circulation intact Assessment: []s/p Cannulated screw fixation left hip POD #2 Plan: []WBAT LLE 4x4s and tape to left hip wound as needed Lovenox qd for 6 weeks post op Follow up with Dr. Mckeon in 10- 14 days
--- NOTE | 2018-11-24 11:10 | PN ---
Progress Note - Progress Note Date of Service: 11/24/18 Note: Pt seen and examined at 7 am. Feeling ok. Stiff. Increased pain overnight after PT so ordered xrays. AFVSS AAOx3. NAD. comfortable in bed. Dressing in place. calf soft and nontender, SILT grossly. brisk cap refill xrays show no change in fracture fixation A/P POD#2 from cannulated screws dressing change today [facility] WB[facility]
--- NOTE | 2018-11-25 10:58 | DS ---
CC: Dr. Madhavi Lucero; Dr. Mckeon; Dr. Luma Ledbetter at [facility] DISCHARGE SUMMARY: DATE OF ADMISSION: 11/22/18 DATE OF DISCHARGE: 11/24/18 PRIMARY CARE PROVIDER: Dr. Madhavi Lucero with [facility] in [place], [place] ORTHOPEDIST: Dr. Mckeon DISCHARGE DIAGNOSES: 1. Left nondisplaced femoral neck fracture, status post cannulated screws. 2. Incidental finding of thyroid nodule. SECONDARY DIAGNOSES: 1. Hypertension. 2. Hyperlipidemia. 3. Status post hysterectomy. 4. Ureteral stent secondary to nephrolithiasis. 5. Appendectomy. HISTORY OF PRESENT ILLNESS: Mrs. Spann is a 73-year-old lady with a past medical history as stated a derrell that presented to the emergency room with reports of a fall. The patient sustained a mechanical fall and came to the emergency room with complaints of left hip pain. For more details of her prese ntation, I refer you to her history and physical. 1. Left nondisplaced femoral neck fracture. The patient worked up in emergency room included a hip x-ray that showed the above mentioned fracture . Femur and knee x-ray were negative for fractures. The patient was seen in consultation by orthope dist (Dr. Mckeon) and she went to the OR on 11/22/18 and had cannulated screws placed. The patient d id well in the postop period and she was offered the bed at [facility] for further rehab. Ortho recommenda tion was for 4x4s and tape to her left hip wound as needed. Weightbearing as tolerated to the left l ower extremity. DVT prophylaxis with Lovenox daily for 6 weeks [address] followup with Dr. Mckeon in 10 to 14 days. As part of her workup, the patient also had a CT of the brain that showed no acute intracranial patho logy and CT of the cervical spine showed no evidence for fracture, but there is evidence of the large nodule in the right thyroid lobe and the recommendation is for the patient to have outpatient thyroi d ultrasound for further evaluation after she completes her rehab. 2. Hypertension. The patient's blood pressure has been controlled and she will be continued on srinivasan nopril. 3. Hyperlipidemia. We will continue statin. The patient is mentally stable for discharge at this time to continue her rehabilitation process at [facility]. PHYSICAL EXAMINATION: Vital Signs: Temperature 97.8, heart rate is 67, respiratory rate 16, oxygen saturation 96% on room air, blood pressure is 133/67. General: The patient is a pleasant elderly lad y, sitting up in the chair, in no acute distress. CVS: Normal S1, S2. Regular rate and rhythm. Ch est: Breath sounds bilaterally with no added sounds. Extremities: No edema. Calf is soft. There i s a clean dressing attached to her left hip. Neuro: Sensation is intact. She is able to move all 4 extremities. She is alert and oriented x3. DIET: Regular diet. ACTIVITIES: Weightbearing as tolerated. Continue PT and OT as tolerated. DISPOSITION: PMRU. STATUS WHILE IN THE HOSPITAL: Inpatient. CONDITION AT THE TIME OF DISCHARGE: Fair. Please keep in mind, this is a summarized version of this patient's hospital stay. If you need more i nformation, please feel free to call me at [phone] or please obtain the full medical records. TIME SPENT: Approximately 45 minutes was spent to complete this discharge. [id number]/CPS #: [id number]
== END 2018-11-24 11:05 | DRG 482 ==
LOC: ED 08:45 → SSU 11:45
PROVIDERS: ADMIT Internal Medicine; ATTEND Internal Medicine
PROC: 0QH706Z Insertion of Intramedullary Internal Fixation Device into Left Upper Femur, Open Approach (ICD-10-PCS; principal; 2018-11-22 15:45)
DX: S72.012A Unspecified intracapsular fracture of left femur, initial encounter for closed fracture (principal); E04.1 Nontoxic single thyroid nodule; I10 Essential (primary) hypertension; E78.5 Hyperlipidemia, unspecified; F17.210 Nicotine dependence, cigarettes, uncomplicated; W10.9XXA Fall (on) (from) unspecified stairs and steps, initial encounter; E78.00 Pure hypercholesterolemia, unspecified; K21.9 Gastro-esophageal reflux disease without esophagitis; M54.2 Cervicalgia; J30.2 Other seasonal allergic rhinitis; K58.9 Irritable bowel syndrome, unspecified; M16.0 Bilateral primary osteoarthritis of hip; Y92.009 Unspecified place in unspecified non-institutional (private) residence as the place of occurrence of the external cause; Z90.710 Acquired absence of both cervix and uterus; Z87.442 Personal history of urinary calculi; Z90.89 Acquired absence of other organs; Z88.0 Allergy status to penicillin; Z91.018 Allergy to other foods
CPT/HCPCS: 36415; 70450; 71046; 72125; 80048; 80053; 81003; 81015; 83735; 84484; 85014; 85018; 85025; 85049; 85610; 86850; 86900; 86901; 87086; 93005; 99284; A9270-GY; C1713; G8987-GO-CK; G8988-GO-CH; J0330; J0690; J1100; J1170; J1240; J1650; J1885; J2250; J2270; J2405; J2704; J2795; J3010; J3475

== ENCOUNTER 2018-11-24 09:10 | Inpatient (IN) | payer MEDICARE, BC ==
[2018-11-24] MEDS ORDERED: Acetaminophen TAB* 325 MG PO PRN (11:36)
[2018-11-24] MEDS ORDERED: Bisacodyl SUPP* 10 MG SUPP PR PRN (11:36)
[2018-11-24] MEDS ORDERED: Magnesium Hydroxide LIQ* 30 ML UDC PO PRN (11:36)
[2018-11-24] MEDS ORDERED: Al Hydrox/Mg Hydrox/Simet LIQ* 30 ML UDC PO PRN (11:36)
[2018-11-24] MEDS ORDERED: Senna TAB PO PRN (11:36)
[2018-11-24] MEDS ORDERED: Nicotine Inhaler* 10 MG AMP INH PRN (11:45)
[2018-11-24] MEDS ORDERED: oxyCODONE/Acetamin 5/325 MG* TAB PO PRN (11:46)
[2018-11-24] MEDS: oxyCODONE/Acetamin 5/325 MG* TAB PO PRN ×2 (12:00→19:12)
--- NOTE | 2018-11-24 13:38 | HP ---
CC: Dr. Madhavi Lucero with [facility]; Dr. Mckeon REHABILITATION ADMISSION: DATE OF ADMISSION: 11/24/18 REASON FOR ADMISSION: Left hip fracture. PRIMARY CARE PROVIDER: Dr. Madhavi Lucero with [facility]. ORTHOPEDIC SURGEON: Dr. Mckeon. HISTORY OF PRESENT ILLNESS: This is a 73-year-old woman who on 11/22/18 fell down from stairs within her home. She was able to get up and make it to the bathroom, but when she was on the toilet, she experienced increasing left hip pain. She was brought to the emergency room and found to have a nondisplaced subcapital left femoral neck fracture. Other studies included CT of the head that was negative. CT of the cervical spine showed spondylosis and a right thyroid nodule that was recommended by Radiology to be evaluated by an ultrasound as an outpatient. She was seen by the hospitalist service and then Dr. Mckeon in Orthopedic Surgery. She was taken to the OR on 11/22/18 for left hip cannulated screws to treat her hip fracture. Postoperatively, she has been put on Lovenox for DVT prophylaxis for 6 weeks. She has weightbearing as tolerated precautions to the left lower extremity. Prior to admission, she would ambulate using a cane. She was independent with her ADLs and her IADLs. With occupational therapy here, she required a moderate amount of assistance for lower body dressing, bathing, and toileting. With physical therapy, she has required a moderate amount of assistance for bed mobility and a minimum amount of assistance for transferring and ambulation up to 15 feet with a rolling walker. PAST MEDICAL HISTORY: 1. Hypertension. 2. Hyperlipidemia 3. Status post hysterectomy. 4. History of nephrolithiasis with stent and lithotripsy. 5. Status post appendectomy. MEDICATIONS: Currently: 1. Lisinopril 10 mg daily, but her home dose is 5 mg daily and I will be decreasing it to that. 2. Lipitor 20 mg daily, substituted for simvastatin 40 mg daily. 3. Nicotine inhaler 10 mg q.2 hours p.r.n. 4. Colace 100 mg p.o. b.i.d. 5. Lovenox 40 mg subcu q.24 hours. 6. Percocet 1 to 2 tablets q.4 hours p.r.n. pain. ALLERGIES: PENICILLIN and strawberries. FAMILY HISTORY: Brother, prostate cancer. SOCIAL HISTORY: She lives alone in [place]. She is . She has 2 cats. She has 3 stepchildren. Her stepson, Jarrett Spann, is her healthcare proxy if she cannot make decisions for herself. His phone number is [phone]. Her home has 1 step to enter and it has 2 levels. She can stay on the first floor. She has smoked 8 to 10 cigarettes for 50 years and has no intention of quitting. She was counseled on the risk of continuing to smoke. No alcohol. She volunteers. REVIEW OF SYSTEMS: See history of present illness and past medical history. The remainder of the 13 systems review was completed. No other significant findings. PHYSICAL EXAMINATION GENERAL: Well developed, well nourished, appearing stated age. Mental Status: No acute distress. Alert and oriented x3. VITAL SIGNS: Temperature 97.8, heart rate 67, respirations 16, oxygen saturation 96% on room air, blood pressure 133/67. HEENT: Normocephalic, atraumatic. Oropharynx clear. She has dentures with just 3 of her own teeth. Moist mucous membranes. LUNGS: Clear to auscultation bilaterally. HEART: Regular rate and rhythm. ABDOMEN: Active bowel sounds. Soft, nontender, nondistended. EXTREMITIES: No clubbing, cyanosis, or edema. MUSCULOSKELETAL EXAM: She has functional range of motion of all her major joints with limited testing of her left hip and knee due to pain. NEUROLOGICAL EXAM: Cranial nerves II through XII intact. Upper and lower extremity motor 5/5 bilaterally with normal sensation except there is limited testing for strength of her left hip and knee secondary to pain. CARDIOVASCULAR: She has 2+ pedal pulses. DIAGNOSTIC STUDIES/LAB DATA: Today, her hemoglobin was 11, hematocrit 32. IMPRESSION: A 73-year-old woman status post left hip fracture. She will be admitted to [facility] so she can return to living independently. PLAN/RECOMMENDATIONS: 1. Left hip fracture. Continue weightbearing as tolerated to the left lower extremity. She will need to follow up with Dr. Mckeon. Control her pain. 2. DVT prophylaxis. Continue with Lovenox for a total of 6 weeks. We will teach her self-administration. 3. Hypertension. She will be put back down to her home dose of lisinopril 5 mg daily. Her vitals will be monitored. 4. Right thyroid nodule. As an outpatient, she will need an ultrasound. 5. Nicotine dependence. She is receiving a nicotine inhaler and has been advised to quit smoking. 6. Hyperlipidemia. Continue with Lipitor, substituting for simvastatin. 7. Impaired mobility. She will be seen by Physical Therapy for bed mobility, transfer, gait, and stair training. 8. Impaired self-care. She will be seen by Occupational Therapy for ADL and IADL training and equipment evaluation. 9. Advance directives. She is [id number]. If she cannot make decisions for herself, her stepson, Jarrett Spann, is her healthcare proxy. Phone number . ESTIMATED LENGTH OF STAY: Seven to ten days and return to home. [id number]/[facility] #: [id number] HEATHER
[2018-11-24] MEDS: Atorvastatin* 20 MG TAB PO SCH (20:56)
[2018-11-24] MEDS: Docusate CAP* 100 MG PO SCH (20:58)
[2018-11-25 05:19] LABS: Hematocrit 32 % (33-41); Hemoglobin 10.8 g/dL (12.0-16.0); Mean Corpuscular HGB Conc 34 g/dL (31-36); Mean Corpuscular Hemoglobin 31 pg (27-31); Mean Corpuscular Volume 90 fL (80-97); Mean Platelet Volume 7.8 fL (7.4-10.4); Platelet Count 202 10^3/uL (150-450); Red Blood Count 3.51 10^6 /uL (3.70-4.87); Red Cell Distribution Width 14 % (10.5-15); White Blood Count 6.1 10^3/uL (3.5-10.8)
[2018-11-25 05:29] LABS: ABS Basophils 0 10^3/ul (0-0.2); ABS Eosinophils 0.1 10^3/ul (0-0.6); ABS Lymphocytes 1.9 10^3/ul (1.0-4.8); ABS Monocytes 0.4 10^3/ul (0-0.8); ABS Neutrophils 3.7 10^3/ul (1.5-7.7); ABS Nucleated RBC 0 10^3/ul; Eosinophil % 1.9 %; Lymphocyte % 30.6 %; Nucleated Red Blood Cells % 0
[2018-11-25 05:48] LABS: Albumin 3.6 g/dL (3.2-5.2); Albumin/Globulin Ratio 1.5 (1-3); BUN/Creatinine Ratio 24.5 (8-20); EGFR African American 150.2 (>60); EGFR Non-African American 124.1 (>60); Globulin 2.4 g/dL (2-4); Potassium 3.8 mmol/L (3.5-5.0); Total Bilirubin 0.4 mg/dL (0.2-1.0)
[2018-11-25] MEDS: Docusate CAP* 100 MG PO SCH ×2 (07:16→20:04)
[2018-11-25] MEDS: Lisinopril TAB* 5 MG PO SCH (07:23)
[2018-11-25] MEDS: oxyCODONE/Acetamin 5/325 MG* TAB PO PRN (07:23)
[2018-11-25] MEDS ORDERED: oxyCODONE/Acetamin 5/325 MG* TAB PO ONE (09:43)
--- NOTE | 2018-11-25 10:51 | PN ---
Progress Note Date of Service: 11/25/18 Note: ELISE CRAIG was visited. Nursing and therapy notes read and reviewed. She has been trying to limit use of percocet, but unfortunately is therefore experiencing more pain. No chest pain, shortness of breath or abdominal pain. Current Medications: Active Medications Generic Name Dose Route Start Last Admin Trade Name Freq PRN Reason Stop Dose Admin Acetaminophen 650 mg 11/24/18 11:36 Tylenol Tab* PO Q4H PRN FEVER > 101 Al Hydrox/Mg Hydrox/Simethicone 30 ml 11/24/18 11:36 Maalox Plus* PO Q6H PRN INDIGESTION Atorvastatin Calcium 20 mg 11/24/18 21:00 11/24/18 20:56 Lipitor* PO 20 mg 2100 STEVEN Administration Bisacodyl 10 mg 11/24/18 11:36 Dulcolax Supp* [place] DAILY PRN CONSTIPATION Docusate Sodium 100 mg 11/24/18 21:00 11/25/18 07:16 Colace Cap* PO Not Given BID STEVEN Enoxaparin Sodium 40 mg 11/25/18 12:00 Lovenox(*) SUBCUT Q24H STEVEN Lisinopril 5 mg 11/25/18 09:00 11/25/18 07:23 Prinivil Tab* PO 5 mg DAILY STEVEN Administration Magnesium Hydroxide 30 ml 11/24/18 11:36 Milk Of Magnesia Liq* PO Q6H PRN CONSTIPATION Nicotine 10 mg 11/24/18 11:45 11/24/18 12:10 Nicotine Inhaler* INH 10 mg Q2H PRN Administration CRAVING Oxycodone/Acetaminophen 1 tab 11/24/18 11:45 11/25/18 07:23 Percocet 5/325 Tab* PO 1 tab Q4H PRN Administration PAIN Oxycodone/Acetaminophen 2 tab 11/24/18 11:46 Percocet 5/325 Tab* PO Q4H PRN PAIN Senna 2 tab 11/24/18 11:36 Senokot Tab* PO BEDTIME PRN CONSTIPATION Vital Signs: Vital Signs Temp Pulse Resp BP Pulse Ox 97.9 F 79 16 147/68 98 11/25/18 04:59 11/25/18 04:59 11/25/18 09:47 11/25/18 04:59 11/25/18 04:59 Lab Results: Laboratory Results - last 24 hr 04/20/19 04/20/19 04:46 04:46 WBC 6.1 RBC 3.51 L Hgb 10.8 L Hct 32 L MCV 90 MCH 31 MCHC 34 RDW 14 Plt Count 202 MPV 7.8 Neut % (Auto) 59.7 Lymph % (Auto) 30.6 [place] % (Auto) 7.1 Eos % (Auto) 1.9 Baso % (Auto) 0.7 Absolute Neuts (auto) 3.7 Absolute Lymphs (auto) 1.9 Absolute Monos (auto) 0.4 Absolute Eos (auto) 0.1 Absolute Basos (auto) 0 Absolute Nucleated RBC 0 Nucleated RBC % 0 Sodium 138 Potassium 3.8 Chloride 108 Carbon Dioxide 27 Anion Gap 3 BUN 12 Creatinine 0.49 L Est GFR ( Amer) 150.2 Est GFR (Non-Af Amer) 124.1 BUN/Creatinine Ratio 24.5 H Glucose 125 H Calcium 9.0 Total Bilirubin 0.40 AST 17 ALT 15 Alkaline Phosphatase 86 Total Protein 6.0 L Albumin 3.6 Globulin 2.4 Albumin/Globulin Ratio 1.5 Exam: GEN: No acute distress. alert and appropriate. LUNGS: clear to auscultation bilaterally. CV: regular rate and rhythm ABD: + bowel sounds, soft, non-tender, non-distended EXT: no edema. NEURO: motor 5/5 BLE with limited testing of left hip and knee due to pain. Sensation intact. Assessment/Plan: 73yo woman with left hip fracture #Left hip fracture: f/u Dr. Mckeon. PT/OT. Educated on use of pain medications. #Hypertension: lisinopril #DVT ppx: lovenox for 6 weeks per ortho. Educate in self administration. #Right thyroid nodule: needs outpatient ultrasound #Nicotine dependence: has no intention of quitting smoking despite counseling. Has inhaler prn. #Hyperglycemia: check hemoglobin A1c. #Acute post-op anemia: stable. f/u labs. #Advanced directives: DNR. Step son is hcp. #Estimated LOS: IPOC on Tuesday. 11/25/18 10:47
[2018-11-25] MEDS: Enoxaparin(*) 40 MG/0.4 ML SYR SUBCUT SCH (11:27)
[2018-11-25] MEDS ORDERED: Nicotine GUM* 2 MG PO PRN (11:34)
[2018-11-25] MEDS: Atorvastatin* 20 MG TAB PO SCH (20:17)
[2018-11-26] MEDS: Lisinopril TAB* 5 MG PO SCH (07:28)
[2018-11-26] MEDS: Docusate CAP* 100 MG PO SCH ×2 (07:28→20:18)
--- NOTE | 2018-11-26 09:46 | PN ---
Progress Note Date of Service: 11/26/18 Note: ELISE CRAIG was visited. [place] and therapy notes read and reviewed. She was caught smoking in the bathroom. Interventional Radiology Technologist confiscated. She is adamant that she wants to leave against medical advice today. This is not just due to smoking, but her 12yo cat is not eating and she will be more comfortable at home. She feels like she moves well enough and has a walker she can borrow from a friend. She does not believe she qualifies for home services in [facility]. She has learned self administration of lovenox. She does not think she needs narcotic pain medications and could just manage with tylenol. She accepts responsibility and risks of and additional injury with potentially more disability. She understands she is at increased risk of falling. No chest pain, shortness of breath or abdominal pain. Current Medications: Active Medications Generic Name Dose Route Start Last Admin Trade Name Freq PRN Reason Stop Dose Admin Acetaminophen 650 mg 11/24/18 11:36 Tylenol Tab* PO Q4H PRN FEVER > 101 Al Hydrox/Mg Hydrox/Simethicone 30 ml 11/24/18 11:36 Maalox Plus* PO Q6H PRN INDIGESTION Atorvastatin Calcium 20 mg 11/24/18 21:00 11/25/18 20:17 Lipitor* PO 20 mg 2100 STEVEN Administration Bisacodyl 10 mg 11/24/18 11:36 Dulcolax Supp* IN DAILY PRN CONSTIPATION Docusate Sodium 100 mg 11/24/18 21:00 11/26/18 07:28 Colace Cap* PO Not Given BID STEVEN Enoxaparin Sodium 40 mg 11/25/18 12:00 11/25/18 11:27 Lovenox(*) SUBCUT 40 mg Q24H STEVEN Administration Lisinopril 5 mg 11/25/18 09:00 11/26/18 07:28 Prinivil Tab* PO 5 mg DAILY STEVEN Administration Magnesium Hydroxide 30 ml 11/24/18 11:36 Milk Of Magnesia Liq* PO Q6H PRN CONSTIPATION Nicotine Polacrilex 2 mg 11/25/18 11:34 Nicotine Gum* PO Q2H PRN CRAVING Oxycodone/Acetaminophen 1 tab 11/24/18 11:45 11/25/18 07:23 Percocet 5/325 Tab* PO 1 tab Q4H PRN Administration PAIN Oxycodone/Acetaminophen 2 tab 11/24/18 11:46 11/25/18 11:25 Percocet 5/325 Tab* PO 2 tab Q4H PRN Administration PAIN Senna 2 tab 11/24/18 11:36 Senokot Tab* PO BEDTIME PRN CONSTIPATION Vital Signs: Vital Signs Temp Pulse Resp BP Pulse Ox 98.2 F 74 16 139/75 98 11/26/18 05:47 11/26/18 05:47 11/26/18 07:29 11/26/18 05:47 11/26/18 07:29 Lab Results: Laboratory Results - last 24 hr 11/25/18 04:44 Hemoglobin A1c 6.2 H Exam: GEN: No acute distress. alert and appropriate. LUNGS: clear to auscultation bilaterally. CV: regular rate and rhythm ABD: + bowel sounds, soft, non-tender, non-distended EXT: no edema. NEURO: motor 5/5 BLE with limited testing of left hip and knee due to pain. Sensation intact. Assessment/Plan: 73yo woman with left hip fracture #Left hip fracture: f/u Dr. Mckeon. PT/OT. Educated on use of pain medications. #Hypertension: lisinopril #DVT ppx: lovenox for 6 weeks per ortho. Educated in self administration. #Right thyroid nodule: needs outpatient ultrasound #Nicotine dependence: has no intention of quitting smoking despite counseling. She refuses patch. There are no more inhalers. She has gum ordered prn. I discussed #Hyperglycemia: mildly elevated Hgb A1c. follow-up with PCP. #Acute post-op anemia: stable. f/u labs. #Advanced directives: DNR. Step son is hcp. #Estimated LOS: I discussed with her leaving today is against medical advice. I would prescribe her medications but I cannot guarantee that a pharmacy is open and able to fill them today. She would get lovenox today and would be covered until tomorrow, but might be without pain medications. She does not really want pain medications and would manage with tylenol. I also advised if she could wait a day, discharge tomorrow would be better in order to close loops with therapists and also have equipment ordered as needed with social work. After a long conversation she agreed to hold off until tomorrow for discharge. I will alert the team to this. She was at a contact guard level yesterday in therapies , but may be ok tomorrow so that this discharge is not necessarily against medical advice. Her son will pick her up. No time has been arranged. 11/26/18 09:38
[2018-11-26] MEDS: Enoxaparin(*) 40 MG/0.4 ML SYR SUBCUT SCH (14:43)
[2018-11-26] MEDS: Atorvastatin* 20 MG TAB PO SCH (20:18)
[2018-11-27 06:44] VITALS: BP 155/79
[2018-11-27] MEDS: Docusate CAP* 100 MG PO SCH (08:10)
[2018-11-27] MEDS: Lisinopril TAB* 5 MG PO SCH (08:15)
[2018-11-27] MEDS ORDERED: Enoxaparin(*) 40 MG/0.4 ML SYR SUBCUT SCH (09:00)
--- NOTE | 2018-11-27 17:13 | PMRUTEAM ---
PMRU: Team Meeting Current Status: Nursing: Current Status Skin Deviations [Left Hip] Incision Skin Deviation Description [ intact and healing well Left Hip] Physical Therapy: Current Status Bed Mobility Assistance Supervision Transfer Mobility Assistance Supervision,Contact Guard Assist Transfer/Bed Mobility Rolling Walker Recommended Devices Ambulation Assistance Supervision,Contact Guard Assist Ambulation Assistive Devices Rolling Walker Number of Feet Patient 120 Ambulated Stairs Assistance Min Assist Stairs Recommended Devices Two Rails Number of Stairs 5 Occupational Therapy: Current Status Upper Body Dressing Independent Lower Body Dressing Independent Bathing Independent,Ind with Adaptive Equip Toileting Ind with Adaptive Equip Toilet Transfer Ind with Adaptive Equip Shower Transfer Contact Guard Assist Eating Independent Rec Therapy: Current Status Summary of Assessment and Pt. was open to conversation - pleasant, motivated Clinical Impression and chatty. Pt. is very devoted to her cats and is eager to return home to them. Pt. reports having a large support system through friends, family and neighbors who are willing to help her as she recovers. Pt. states "I've had a good, long life and I'm happy with it" Treatment Goals Pt. will engage in recreation while on the unit. Treatment Plan Provide recreation services. Goals: Physical Therapy: Initial Goals Bed Mobility Assistance Independent Transfer Mobility Assistance Independent Transfer/Bed Mobility Rolling Walker Recommended Devices Ambulation Independent Ambulation Recommended Devices Rolling Walker Ambulation Distance 300 Stairs Assistance Independent Stair Recommended Devices Two Rails Number of Stairs 5 Physical Therapy: Updated Goals Transfer/Bed Mobility Rolling Walker Recommended Devices Occupational Therapy: Initial Goals Goals to be Completed in (Days 5-7 ) Upper Body Bathing Routine Modified Independent with Lower Body Bathing Routine Modified Independent with Upper Body Dressing Routine Independent Lower Body Dressing Routine Modified Independent with Toilet Hygeine and Clothing Modified Independent with Management Routine Toilet Transfer Routine Modified Independent with Step-In Shower Transfer Modified Independent with Routine Tub Transfer Routine Modified Independent with Functional Transfers for ADL Modified Independent with Grooming Routine Independent Feeding Routine Independent Light Housekeeping Tasks Minimal Contact Assist Light Housekeeping Tasks Alice for light meal prep Assistive Devices Care Plan: Care Plan ADL's - Improve/Maintain Start: 11/24/18 16:06 Freq: DAILY Status: Discharge Target: Protocol: Activity Type Activity Date Activity User E-Sign Co-Sign Detail Recorded Client Recorded Date Recorded By Document 11/24/18 16:06 [id number] 11/24/18 16:07 [id number] 11/24/18 16:06 PMRU Outcome: ADL's/ADL Transfers Orders/Interventions Occupational Therapy Evaluation & Treatment Communication Tool in Patient Room Device Yes Address Deficits Secondary To: left hip ORIF Patient to receive OT 5x/wk for 60-120 Therex min/day Self Care Management Group Therapy UE/LE ADL's with Assist Yes: Alice ADL Transfers with Assist Yes: Alice Toileting: Transfers,Clothing Management Yes: Alice ,Hygeine w/Assist Light Kitchen/Laundry w/Assist Yes: light meal prep Alice Progression Toward Outcome/Goals Progressing Outcome/Goals Met Pt is a 73 year old female who lives alone presented s/p fall down 6-7 stairs with left hip pain, diagnosed with left femoral neck fx and s/p ORIF yesterday with cannulated screws. Pt is WBAT per orders . Pt pleasant and cooperative during OT evaluation, decreased insight judgement as pt has been educated on having assistance for mobility, during evaluation pt requested walker to be moved closer so she could transfer herself to bed when ready, pt again educated by this copy writer on need for assistance and to use call tuttle prior to transfers. Pt verbalized understanding, RN reports PA in place. Pt currently with increased pain, decreased balance which limits independence with bathing, dressing, toileting, and transfers, also with some impulsivity noted during evaluation. Pt will benefit from skilled OT intervention to maximize independence and safety prior to d/c home as pt lives alone. Pain/Comfort- Improve/Maintain Start: 11/24/18 13:19 Freq: QSHIFT Status: Complete Target: Protocol: Activity Type Activity Date Activity User E-Sign Co-Sign Detail Recorded Client Recorded Date Recorded By Document 11/27/18 09:40 [id number] 11/27/18 09:40 [id number] 11/27/18 09:40 PMRU Outcome: Pain/Comfort Outcome/Goals Demonstrates Knowledge and Use of Available Comfort Measures Achieves Acceptable Comfort/Pain Level as Determined by Patient/Condit Maintain Comfort Level Allowing Patient to Fully Participate in Rehab Progression Toward Outcome/Goals Progressing Outcome/Goals Met Demonstrates Knowledge and Use of Available Comfort Measures Achieves Acceptable Comfort/Pain Level as Determined by Patient/Condit Maintain Comfort Level Allowing Patient to Fully Participate in Rehab Safety- Improve/Maintain Start: 11/24/18 13:19 Freq: QSHIFT Status: Complete Target: Protocol: Activity Type Activity Date Activity User E-Sign Co-Sign Detail Recorded Client Recorded Date Recorded By Document 11/27/18 09:40 [id number] 11/27/18 09:40 [id number] 11/27/18 09:40 PMRU Outcome: Safety Outcome/Goals Remain Free of Injury or Harm Cooperates with Safety Measures for Least Restrictive Environment Prevent Falls/ Injury Progression Toward Outcome/Goals Progressing Outcome/Goals Met Remain Free of Injury or Harm Cooperates with Safety Measures for Least Restrictive Environment Prevent Falls/ Injury Outcome/Goals Met Comment using call [facility] Medicine Note: Length of Stay: today Anticipated Discharge Destination: Tentative Discharge Date: today Discharged to: Home
--- NOTE | 2018-11-28 05:07 | DS ---
CC: Dr. Madhavi Lucero at [facility] * DISCHARGE SUMMARY: DATE OF ADMISSION: 11/24/18 DATE OF DISCHARGE: 11/27/18 DISCHARGE DIAGNOSES: 1. Left hip fracture. 2. Hypertension. 3. Hyperlipidemia. 4. Nicotine addiction. 5. Right thyroid nodule. HISTORY OF ILLNESS AND HOSPITAL COURSE: For complete history of the events leading up to her rehab stay, please see the history and physical dictated by me on 11/24/18. While on the rehab unit, the patient remained fairly stable. She was maintained on Lovenox for DVT prophylaxis. She was given nicotine alternatives, but the patient was found smoking in her bathroom. She refused the nicotine patch. The patient said she had no intentions of quitting smoking. The patient was seen by both Physical and Occupational Therapy and made good gains with both disciplines. With physical therapy at the time of admission, the patient required contact guard for transfer, she was able to ambulate 150 feet with contact guard. With occupational therapy at the time of admission, the patient was supervision for upper body dressing, min assist for lower body dressing, contact guard for toileting and toilet transfers. By the time of discharge, she was independent in her activities of daily living. She was able to transfer independently. She was able to ambulate 150 feet independently. The patient was discharged to her own home on 11/27/18. DISCHARGE DIET: Regular. DISCHARGE MEDICATIONS: 1. Lovenox 40 mg subcutaneously daily for 1 month. 2. Lisinopril 5 mg daily. 3. Percocet 1 to 2 tablets every 4 hours as needed. 4. Zocor 40 mg daily. 5. [place]-3 fatty acids 1 capsule daily. SERVICES AFTER DISCHARGE: The patient declined all services after discharge. She said she could not afford to do outpatient physical therapy. FOLLOWUP: The patient will follow up with Dr. Mckeon on 12/01/18 at 9:30 in the morning. The patient will also need an ultrasound of her thyroid nodule as an outpatient. TIME SPENT: Time for this discharge was approximately 45 minutes; greater than half of that was spent with the patient discussing outpatient services, nicotine cessation, assistance and outpatient medications. [id number]/[facility] #: [id number] HEATHER
== END 2018-11-27 13:05 | disposition home or self-care (01) | DRG 560 ==
LOC: PMRU 10:55
PROVIDERS: ADMIT Physical Medicine & Rehabilitation; ATTEND Physical Medicine & Rehabilitation
PROC: F07Z5ZZ Bed Mobility Treatment (ICD-10-PCS; principal; 2018-11-24)
PROC: F07Z9ZZ Gait Training/Functional Ambulation Treatment (ICD-10-PCS; 2018-11-24)
PROC: F07Z8ZZ Transfer Training Treatment (ICD-10-PCS; 2018-11-24)
PROC: F08Z0ZZ Bathing/Showering Techniques Treatment (ICD-10-PCS; 2018-11-24)
PROC: F08Z1ZZ Dressing Techniques Treatment (ICD-10-PCS; 2018-11-24)
PROC: F08Z3ZZ Feeding/Eating Treatment (ICD-10-PCS; 2018-11-24)
DX: S72.012D Unspecified intracapsular fracture of left femur, subsequent encounter for closed fracture with routine healing (principal); D62 Acute posthemorrhagic anemia; W10.9XXD Fall (on) (from) unspecified stairs and steps, subsequent encounter; I10 Essential (primary) hypertension; E78.5 Hyperlipidemia, unspecified; F17.210 Nicotine dependence, cigarettes, uncomplicated; E04.1 Nontoxic single thyroid nodule; R73.9 Hyperglycemia, unspecified; Z66 Do not resuscitate; Z79.899 Other long term (current) drug therapy; Z91.018 Allergy to other foods; Z80.42 Family history of malignant neoplasm of prostate
CPT/HCPCS: 36415; 80053; 83036; 85025; A9270-GY; J1650